=== PATIENT | male | born 1980 | race Caucasian/White ===

== ENCOUNTER 2019-09-17 17:37 | Observation (INO) | payer BC, OTHER ==
--- NOTE | 2019-09-17 17:55 | EDM.PDOC ---
ED HPI GENERAL MEDICAL PROBLEM - General Chief Complaint: Abdominal Pain Stated Complaint: abdominal pain Time Seen by Provider: 09/17/19 17:55 Source of Information: Reports: Patient History Limitations: Reports: No Limitations - History of Present Illness INITIAL COMMENTS - FREE TEXT/NARRATIVE: Abdominal discomfort right sided developed today peaking roughly 3 PM and persistent since then. Ate burritos this morning for breakfast as he was hungry and roughly an hour and a half after that developed mild right-sided discomfort. Not specific to this being gallbladder. Not acting as if musculature is position does not aggravate it. Denies any exposures for COVID 19, no fever chills or GI symptoms. No cough no shortness of breath have been noted. Overall states good general health. 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 Abdominal Pain Score (Numeric/FACES): 7 - Related Data Allergies Allergy/AdvReac Type Severity Reaction Status Date / Time almond Allergy Abdominal Verified 09/17/19 17:39 Pain egg Allergy Hives Verified 09/17/19 17:39 honey Allergy Rash Verified 09/17/19 17:39 Home Meds: Home Meds Albuterol [Proventil HFA] 1 puff INH QID PRN 09/17/19 [History] Fluticasone/Vilanterol [Breo Ellipta 100-25 MCG Inhalation Kit] 1 puff INH DAILY 09/17/19 [History] Ibuprofen 200 - 600 mg PO ASDIRECTED PRN 09/17/19 [History] Montelukast [Singulair] 10 mg PO DAILY 09/17/19 [History] Multivitamin with Minerals [Multiple Vitamin] 1 tab PO DAILY 09/17/19 [History] Past Medical History Cardiovascular History: Reports: None Respiratory History: Reports: Asthma Gastrointestinal History: Reports: None Genitourinary History: Reports: None Psychiatric History: Reports: None Endocrine/Metabolic History: Reports: None Hematologic History: Reports: None Oncologic (Cancer) History: Reports: None - Infectious Disease History Infectious Disease History: Reports: None - Past Surgical History Head Surgeries/Procedures: Reports: None HEENT Surgical History: Reports: None Cardiovascular Surgical History: Reports: None Respiratory Surgical History: Reports: None GI Surgical History: Reports: Hernia, Inguinal ("left side 20 yrs ago") Endocrine Surgical History: Reports: None Neurological Surgical History: Reports: None Musculoskeletal Surgical History: Reports: None Oncologic Surgical History: Reports: None Dermatological Surgical History: Reports: None Social & Family History - Family History Family Medical History: Noncontributory - Tobacco Use Smoking Status *Q: Never Smoker Tobacco Use Within Last Twelve Months: No - Alcohol Use Alcohol Use History: No - Recreational Drug Use Recreational Drug Use: No Drug Use in Last 12 Months: No ED ROS GENERAL - Review of Systems Review Of Systems: See Below Constitutional: Reports: No Symptoms HEENT: Reports: No Symptoms Respiratory: Reports: No Symptoms Cardiovascular: Reports: No Symptoms. Denies: Chest Pain Endocrine: Reports: No Symptoms GI/Abdominal: Reports: Abdominal Pain : Reports: No Symptoms Musculoskeletal: Denies: Back Pain, Leg Pain Skin: Reports: No Symptoms Neurological: Reports: No Symptoms Psychiatric: Reports: No Symptoms Hematologic/Lymphatic: Reports: No Symptoms Immunologic: Reports: No Symptoms ED EXAM, GENERAL - Physical Exam Exam: See Below Free Text/Narrative:: Alert, oriented in no distress. Resting semi-Fowlers with no evidence of cyanosis nor pallor. HEENT is negative to discharge nor deformity. PERRLA no icterus no injection. Ke[place] moist mucous membranes with no erythema or exudate noted. Neck is soft supple no lymphadenopathy no rigidity. Thorax is clear throughout with no wheezes no crackles. Cardiac is S1-S2 with no appreciated murmur. Abdomen is soft bowel sounds are noted throughout/slow. There is tenderness to the right side of the umbilicus to initial palpation with no guarding, no rebound tenderness. There is no tenderness to the left side of the abdomen. There is mild tenderness on deep inspiration but very minimal to the right upper quadrant. There is no specific pain to palpation nor active rebound tenderness in the right lower quadrant. There is no flank pain to percussion or palpation. There is no back pain to motion nor examination palpation. Able to do straight leg raise single and bilateral with no discomfort change to the abdomen. There is no integument changes noted to the abdomen nor flank nor lower posterior thorax. No edema to the lower extremities moves about with minimal if any discomfort. Course - Vital Signs Last Recorded V/S: Last Vital Signs Temp 36.1 C 08/08/20 20:03 Pulse 73 09/17/19 20:03 Resp 20 09/17/19 20:03 BP 131/60 09/17/19 20:03 Pulse Ox 100 09/17/19 20:03 - Orders/Labs/Meds Orders: Active Orders 24 hr Category Date Time Status Peripheral IV Care [RC] . DIRECTED Care 09/17/19 18:18 Active Abdomen Pelvis w Cont [CT] Stat Exams 09/17/19 19:04 Taken CORONAVIRUS COVID-19 RAPID [MOLEC] Stat Lab 09/17/19 20:37 Ordered UA RFX JAIEM AND CULT IF INDIC [URIN] Stat Lab 09/17/19 18:01 Ordered Lactated Ringers [Ringers, Lactated] 1,000 ml Med 09/17/19 20:45 Ordered IV ASDIRECTED Sodium Chloride 0.9% [Normal Saline] 50 ml Med 09/17/19 19:30 Active IV ASDIRECTED Sodium Chloride 0.9% [Saline Flush] Med 09/17/19 18:18 Active 10 ml FLUSH Q8HR PRN Peripheral IV Insertion Adult [OM.PC] Routine Oth 09/17/19 18:18 Ordered Medication Orders Sodium Chloride (Normal Saline) 50 mls @ 200 mls/hr IV ASDIRECTED ZEINA Last Admin: 09/17/19 20:06 Dose: 200 mls/hr Documented by: MAYNOR Lactated Ringer's (Ringers, Lactated) 1,000 mls @ 150 mls/hr IV ASDIRECTED ZEINA Sodium Chloride (Saline Flush) 10 ml FLUSH Q8HR PRN PRN Reason: keep vein open Labs: Laboratory Tests 09/17/19 09/17/19 Range/Units 18:18 18:18 WBC 8.37 (5.00-10.00) 10^3/uL RBC 5.52 (4.50-6.00) 10^6/uL Hgb 17.0 (13.0-17.0) g/dL Hct 49.5 (40.0-52.0) % MCV 89.7 (82.0-92.0) fL MCH 30.8 (27.0-31.0) pg MCHC 34.3 (32.0-36.0) g/dL RDW 13.0 (11.5-14.5) % Plt Count 233 (150-400) 10^3/uL MPV 10.2 (7.4-10.4) fL Immature Gran % (Auto) 0.0 (0.0-5.0) % Neut % (Auto) 73.5 H (50.0-70.0) % Lymph % (Auto) 15.7 L (20.0-40.0) % [place] % (Auto) 6.1 (2.0-8.0) % Eos % (Auto) 4.3 H (1.0-3.0) % Baso % (Auto) 0.4 (0.0-1.0) % Neut # (Auto) 6.16 (2.50-7.00) 10^3/uL Lymph # (Auto) 1.31 (1.00-4.00) 10^3/uL [place] # (Auto) 0.51 (0.10-0.80) 10^3/uL Eos # (Auto) 0.36 H (0.10-0.30) 10^3/uL Baso # (Auto) 0.03 (0.00-0.10) 10^3/uL Immature Gran # (Auto) 0.00 (0.00-0.50) 10^3/uL Sodium 139 (136-145) mmol/L Potassium 4.4 (3.3-5.3) mmol/L Chloride 101 (98-115) mmol/L Carbon Dioxide 30.3 (21.0-32.0) mmol/L Anion Gap 12.1 (5-15) mmol/L BUN 11 (6-25) mg/dL Creatinine 0.94 (0.51-1.17) mg/dL Est Cr Clr Drug Dosing 95.70 mL/min Estimated GFR (MDRD) > 60 mL/min Glucose 102 H (75 - 99) mg/dL Calcium 9.3 (8.7-10.3) mg/dL Total Bilirubin 0.9 (0.2-1.0) mg/dL AST 15 (15-37) U/L ALT 34 (12-78) U/L Alkaline Phosphatase 72 (46-116) IU/L Total Protein 8.5 H (6.4-8.2) g/dL Albumin 4.60 (3.00-4.80) g/dL Amylase 45 (25-125) U/L Lipase 73 (73-393) U/L Meds: Medications Generic Name Dose Route Start Last Admin Trade Name Freq PRN Reason Stop Dose Admin Sodium Chloride 50 mls @ 200 mls/hr 09/17/19 19:30 09/17/19 20:06 Normal Saline IV 200 mls/hr ASDIRECTED ZEINA Administration Lactated Ringer's 1,000 mls @ 150 mls/hr 09/17/19 20:45 Ringers, Lactated IV ASDIRECTED ZEINA Sodium Chloride 10 ml 09/17/19 18:18 Saline Flush FLUSH Q8HR PRN keep vein open Discontinued Medications Generic Name Dose Route Start Last Admin Trade Name Freq PRN Reason Stop Dose Admin Sodium Chloride 1,000 mls @ 999 mls/hr 09/17/19 18:01 09/17/19 18:21 Normal Saline IV 09/17/19 19:01 999 mls/hr .BOLUS ONE Administration Iopamidol 100 ml 09/17/19 19:28 09/17/19 20:06 Isovue-370 (76%) IV 09/17/19 19:29 75 ml ONETIME ONE Administration - Re-Assessments/Exams Free Text/Narrative Re-Assessment/Exam: 09/17/19 19:00 Laboratory analysis reveals no significant findings, normal white count with mild start of shift neutrophils are up. Attempting to void for urinalysis, unable to give sample at this time. Advised that we only needed a small amount to rule out renal lithiasis and will proceed with scan, CT abdomen pelvis with IV contrast. 09/17/19 20:55 Advised of small bowel obstruction and the need for admission. Will contact [facility] provider Dr. Katty Tucker for decoded discussion of status and admission deferred to observation. Will remain n.p.o. with full CODE STATUS lactated Ringer's at 150/h. Departure - Departure Time of Disposition: 20:50 Disposition: Refer to Observation Condition: Good Clinical Impression: Abdominal pain in male, Small bowel obstruction, partial - Discharge Information *PRESCRIPTION DRUG MONITORING PROGRAM REVIEWED*: Not Applicable *COPY OF PRESCRIPTION DRUG MONITORING REPORT IN PATIENT KELI: Not Applicable Forms: ED Department Discharge Sepsis Event Note (ED) - Evaluation Sepsis Screening Result: No Definite Risk - Focused Exam Vital Signs: Vital Signs Temp Pulse Resp BP Pulse Ox 09/17/19 20:03 36.1 C 73 20 131/60 100 09/17/19 17:42 36.6 C 72 16 138/76 99 - Problem List & Annotations (1) Abdominal pain in male SNOMED Code(s): 70601271, 742170069 Code(s): R10.9 - UNSPECIFIED ABDOMINAL PAIN Status: Acute Priority: High (2) Small bowel obstruction, partial SNOMED Code(s): 928010752 Code(s): K56.600 - PARTIAL INTESTINAL OBSTRUCTION, UNSPECIFIED TO CAUSE Status: Acute Priority: High - Problem List Review Problem List Initiated/Reviewed/Updated: Yes - My Orders Last 24 Hours: My Active Orders 09/17/19 18:01 UA RFX JAIME AND CULT IF INDIC [URIN] Stat 09/17/19 18:18 Peripheral IV Care [RC] . DIRECTED Sodium Chloride 0.9% [Saline Flush] 10 ml FLUSH Q8HR PRN Peripheral IV Insertion Adult [OM.PC] Routine 09/17/19 19:04 Abdomen Pelvis w Cont [CT] Stat 09/17/19 19:30 Sodium Chloride 0.9% [Normal Saline] 50 ml IV ASDIRECTED 09/17/19 20:37 CORONAVIRUS COVID-19 RAPID [MOLEC] Stat 09/17/19 20:45 Lactated Ringers [Ringers, Lactated] 1,000 ml IV ASDIRECTED - Assessment/Plan Last 24 Hours: My Active Orders 09/17/19 18:01 UA RFX JAIME AND CULT IF INDIC [URIN] Stat 09/17/19 18:18 Peripheral IV Care [RC] . DIRECTED Sodium Chloride 0.9% [Saline Flush] 10 ml FLUSH Q8HR PRN Peripheral IV Insertion Adult [OM.PC] Routine 09/17/19 19:04 Abdomen Pelvis w Cont [CT] Stat 09/17/19 19:30 Sodium Chloride 0.9% [Normal Saline] 50 ml IV ASDIRECTED 09/17/19 20:37 CORONAVIRUS COVID-19 RAPID [MOLEC] Stat 09/17/19 20:45 Lactated Ringers [Ringers, Lactated] 1,000 ml IV ASDIRECTED Plan: Contact Dr. Annalee Landeros for admission. Provided details of history and laboratory analysis as well as chest and CT findings. Moderate partial small bowel obstruction of the mid to distal jejunum is noted on CT with IV contrast. He has remained comfortable other than fluctuation of his discomfort denying any nausea. Still unable to void. Will hang second bag of IV fluid lactated Ringer's at 150/h. We will defer NG tube at this time secondary of no distention, nausea or bloating/cramping. We will place in observation status n.p.o. with continuation of lactated Ringer's. COVID 19 screening pending at this time.
[2019-09-17] MEDS ORDERED: Sodium Chloride 0.9% 1,000 ML IV ONE (18:01)
[2019-09-17] MEDS ORDERED: Sodium Chloride 0.9% 10 ML Syringe FLUSH PRN (18:18)
[2019-09-17 18:44] LABS: ANION GAP 12.1 mmol/L (5-15); CHLORIDE,CL 101 mmol/L (98-115); SODIUM,NA 139 mmol/L (136-145)
[2019-09-17] MEDS ORDERED: Iopamidol 755 Mg/ML 100 ML Bottle IV ONE (19:28)
[2019-09-17] MEDS ORDERED: Sodium Chloride 0.9% 50 ML IV SCH (19:30)
--- NOTE | 2019-09-17 19:55 | CR ---
[id number] RAD/RAD Chest PA And Lateral EXAM: RAD Chest PA And Lateral INDICATION: ABD PAIN COMPARISON: None. DISCUSSION: Cardiomediastinal silhouette is normal in size and contour. No infiltrate, effusion, pneumothorax, or edema. IMPRESSION: No acute cardiopulmonary abnormality. Fidel Hamilton DO 09/17/19 1954 Thank you for allowing us to participate in the care of your patient.
[2019-09-17] MEDS: Lactated Ringers 1,000 ML IV SCH (21:13)
[2019-09-17] MEDS ORDERED: Albuterol 8 GM Inhaler INH PRN (22:13)
[2019-09-17] MEDS ORDERED: Ondansetron 4 MG/2 ML SDV IVPUSH PRN (22:14)
[2019-09-17] MEDS ORDERED: HYDROmorphone 1 MG/ML Syringe IVPUSH PRN ×2 (22:21→22:27)
[2019-09-18] MEDS: Lactated Ringers 1,000 ML IV SCH (04:09)
[2019-09-18] MEDS ORDERED: Formoterol/Mometasone 100-5 MCG 8.8 GM Inhaler IH SCH (08:00)
[2019-09-18 08:16] LABS: ANION GAP 9.3 mmol/L (5-15); CHLORIDE,CL 107 mmol/L (98-115); SODIUM,NA 142 mmol/L (136-145)
[2019-09-18] MEDS ORDERED: BREO ELLIPTA INH SCH (09:00)
[2019-09-18] MEDS ORDERED: Non-Formulary Medication 1 Each (Fluticasone/Vilanterol 1 PUFF) INH SCH (09:00)
--- NOTE | 2019-09-18 09:12 | CT ---
[id number] CT/CT Abdomen Pelvis W IV EXAM: CT Abdomen Pelvis W IV CLINICAL DATA: RIGHT SIDE PERIUMBILICAL REGION COMPARISON STUDY: None. FINDINGS: Lung bases are clear. Liver, spleen, gallbladder, pancreas, adrenal glands, and kidneys are unremarkable. There are multiple distended loops of small bowel within the midabdomen measuring up to 3.2 cm. This appears to represent the distal jejunum. The ileum and colon are normal in caliber. There is no free air. Small amount of free fluid within the pelvis. No definite transition point. The appendix is visualized and appears normal. No lymphadenopathy, or pneumoperitoneum. Scattered changes of spondylosis the spine. No fracture or osseous lesion. IMPRESSION: Multiple distended loops of jejunum without definite transition point consistent with high-grade partial small bowel obstruction. Small amount of free fluid within the pelvis. Fidel Hamilton DO 09/18/19 0911 Thank you for allowing us to participate in the care of your patient.
--- NOTE | 2019-09-18 11:28 | PCM.HP.2 ---
H&P History of Present Illness - General Date of Service: 09/18/19 Admit Problem/Dx: Admission Diagnosis/Problem Admission Diagnosis/Problem Small bowel obstruction Source of Information: Patient, Old Records, Provider (CHRISTINE Ravi (ED provider)), RN, RN Notes Reviewed History Limitations: Reports: No Limitations - History of Present Illness Initial Comments - Free Text/Narative: Mr. Bolanos was in his usual state of health on 09/17/19 until he developed acute right sided abdominal pain in the mid morning after eating 2 burritos. 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 He described the pain as initially dull and later in the afternoon around [id number] becoming more severe prompting ED visit. His last BM was earlier in the morning on 09/17/19 and relatively normal aside from being a bit softer. He typically has a daily soft BM and had one each of the prior days without difficulty. Aside from the 2 burritos, he hasn't had any po intake aside from trying a small amount of soup and water prior to the pain becoming more severe. Aside from the abdominal pain that he developed, he had no symptoms and otherwise felt well. This morning on rounds, he states that he hasn't had recurrent abdominal pain since admission. He denies having had nausea since he developed pain. He endorses passing gas for the last multiple hours. Has been ambulating without difficulty. Denies any other complaints. Nursing notes no concerns. Abdominal Pain Score (Numeric/FACES): 0 - Related Data Allergies/Adverse Reactions: Allergies Allergy/AdvReac Type Severity Reaction Status Date / Time almond Allergy Abdominal Verified 09/17/19 17:39 Pain egg Allergy Hives Verified 09/17/19 17:39 honey Allergy Rash Verified 09/17/19 17:39 Home Medications: Home Meds Albuterol [Proventil HFA] 1 puff INH QID PRN 09/17/19 [History] Fluticasone/Vilanterol [Breo Ellipta 100-25 MCG Inhalation Kit] 1 puff INH DAILY 09/17/19 [History] Ibuprofen 200 - 600 mg PO ASDIRECTED PRN 09/17/19 [History] Montelukast [Singulair] 10 mg PO DAILY 09/17/19 [History] Multivitamin with Minerals [Multiple Vitamin] 1 tab PO DAILY 09/17/19 [History] Past Medical History HEENT History: Reports: Impaired Vision Other HEENT History: uses glasses Cardiovascular History: Reports: None Respiratory History: Reports: Asthma, SOB Gastrointestinal History: Reports: None Genitourinary History: Reports: None Neurological History: Reports: None Psychiatric History: Reports: None Endocrine/Metabolic History: Reports: None Hematologic History: Reports: None Immunologic History: Reports: None Oncologic (Cancer) History: Reports: None Dermatologic History: Reports: None - Infectious Disease History Infectious Disease History: Reports: None - Past Surgical History Head Surgeries/Procedures: Reports: None HEENT Surgical History: Reports: None Cardiovascular Surgical History: Reports: None Respiratory Surgical History: Reports: None GI Surgical History: Reports: Hernia, Inguinal Endocrine Surgical History: Reports: None Neurological Surgical History: Reports: None Musculoskeletal Surgical History: Reports: None Oncologic Surgical History: Reports: None Dermatological Surgical History: Reports: None Social & Family History - Family History Cardiac: Reports: CAD (mother) Neurological: Reports: CVA (mother) - Tobacco Use Smoking Status *Q: Never Smoker - Recreational Drug Use Recreational Drug Use: No Drug Use in Last 12 Months: No H&P Review of Systems - Review of Systems: Review Of Systems: See Below General: Denies: Fever, Chills, Malaise, Weakness, Fatigue HEENT: Denies: Ear Pain, Sinus Congestion, Sore Throat Pulmonary: Denies: Shortness of Breath, Wheezing, Cough Cardiovascular: Denies: Chest Pain, Dyspnea on Exertion, Edema, Lightheadedness Gastrointestinal: Denies: Black Stool, Bloody Stool, Constipation, Diarrhea, Difficulty Swallowing, Nausea, Vomiting Genitourinary: Denies: Dysuria, Frequency, Burning, Pain, Urgency Musculoskeletal: Denies: Back Pain, Joint Pain, Joint Swelling Skin: Denies: Jaundice, Pallor, Rash Psychiatric: Denies: Confusion, Depression, Anxiety Neurological: Denies: Dizziness, Headache, Numbness, Tingling, Gait Disturbance Exam - Exam Exam: See Below - Vital Signs Vital Signs: Last Vital Signs Temp 36.1 C 09/18/19 06:44 Pulse 53 L 09/18/19 06:44 Resp 16 09/18/19 06:44 BP 113/69 09/18/19 06:44 Pulse Ox 97 09/18/19 06:44 Weight: 69.655 kg - Exam Physical Exam Comments:: GENERAL: Well-appearing adult male lying in hospital bed in no acute distress. HEENT: Normocephalic, atraumatic. Conjunctiva clear. Nares patent without discharge. Mucous membranes moist. NECK: Supple, no masses. CV: Regular rate and rhythm, no murmurs, rubs, or gallops. 2+ radial pulses. PULMONARY: Normal effort, clear to auscultation bilaterally, no wheezes, rales, or rhonchi. ABDOMEN: Positive bowel sounds in all quadrants, soft, very mild tenderness to deep palpation in the right mid-abdomen, nondistended. EXTREMITIES: No edema, cyanosis, or clubbing. MUSCULOSKELETAL: Moves all extremities well. NEUROLOGICAL: No obvious deficits. DERMATOLOGIC: No rashes or suspicious lesions in exposed areas. PSYCHIATRIC: Alert, interactive, appropriate affect. - Patient Data Lab Results Last 24 hrs: Laboratory Results - last 24 hr 09/17/19 09/17/19 09/17/19 Range/Units 18:18 18:18 20:40 WBC 8.37 (5.00-10.00) 10^3/uL RBC 5.52 (4.50-6.00) 10^6/uL Hgb 17.0 (13.0-17.0) g/dL Hct 49.5 (40.0-52.0) % MCV 89.7 (82.0-92.0) fL MCH 30.8 (27.0-31.0) pg MCHC 34.3 (32.0-36.0) g/dL RDW 13.0 (11.5-14.5) % Plt Count 233 (150-400) 10^3/uL MPV 10.2 (7.4-10.4) fL Immature Gran % (Auto) 0.0 (0.0-5.0) % Neut % (Auto) 73.5 H (50.0-70.0) % Lymph % (Auto) 15.7 L (20.0-40.0) % Fountain % (Auto) 6.1 (2.0-8.0) % Eos % (Auto) 4.3 H (1.0-3.0) % Baso % (Auto) 0.4 (0.0-1.0) % Neut # (Auto) 6.16 (2.50-7.00) 10^3/uL Lymph # (Auto) 1.31 (1.00-4.00) 10^3/uL Fountain # (Auto) 0.51 (0.10-0.80) 10^3/uL Eos # (Auto) 0.36 H (0.10-0.30) 10^3/uL Baso # (Auto) 0.03 (0.00-0.10) 10^3/uL Immature Gran # (Auto) 0.00 (0.00-0.50) 10^3/uL Sodium 139 (136-145) mmol/L Potassium 4.4 (3.3-5.3) mmol/L Chloride 101 (98-115) mmol/L Carbon Dioxide 30.3 (21.0-32.0) mmol/L Anion Gap 12.1 (5-15) mmol/L BUN 11 (6-25) mg/dL Creatinine 0.94 (0.51-1.17) mg/dL Est Cr Clr Drug Dosing 95.70 mL/min Estimated GFR (MDRD) > 60 mL/min Glucose 102 H (75 - 99) mg/dL Lactic Acid (0.4-2.0) mmol/L Calcium 9.3 (8.7-10.3) mg/dL Total Bilirubin 0.9 (0.2-1.0) mg/dL AST 15 (15-37) U/L ALT 34 (12-78) U/L Alkaline Phosphatase 72 (46-116) IU/L Total Protein 8.5 H (6.4-8.2) g/dL Albumin 4.60 (3.00-4.80) g/dL Amylase 45 (25-125) U/L Lipase 73 (73-393) U/L Specimen Type Urine Color (YELLOW) Urine Appearance (CLEAR) Urine pH (5.0-9.0) Ur Specific [place] (1.005-1.030) Urine Protein (NEGATIVE) mg/dL Urine Glucose (UA) (NEGATIVE) mg/dL Urine Ketones (NEGATIVE) mg/dL Urine Occult Blood (NEGATIVE) Urine Nitrite (NEGATIVE) Urine Bilirubin (NEGATIVE) Urine Urobilinogen (0.2-1.0) E.U./dL Ur Leukocyte Esterase (NEGATIVE) COVID-19 (RHODA) Negative (NEGATIVE) 09/17/19 09/18/19 09/18/19 Range/Units 20:57 07:45 07:45 WBC 4.88 L (5.00-10.00) 10^3/uL RBC 4.78 (4.50-6.00) 10^6/uL Hgb 14.5 D (13.0-17.0) g/dL Hct 43.2 (40.0-52.0) % MCV 90.4 (82.0-92.0) fL MCH 30.3 (27.0-31.0) pg MCHC 33.6 (32.0-36.0) g/dL RDW 13.2 (11.5-14.5) % Plt Count 183 (150-400) 10^3/uL MPV 10.3 (7.4-10.4) fL Immature Gran % (Auto) 0.0 (0.0-5.0) % Neut % (Auto) 57.4 (50.0-70.0) % Lymph % (Auto) 26.8 (20.0-40.0) % Fountain % (Auto) 9.0 H (2.0-8.0) % Eos % (Auto) 6.4 H (1.0-3.0) % Baso % (Auto) 0.4 (0.0-1.0) % Neut # (Auto) 2.80 (2.50-7.00) 10^3/uL Lymph # (Auto) 1.31 (1.00-4.00) 10^3/uL Fountain # (Auto) 0.44 (0.10-0.80) 10^3/uL Eos # (Auto) 0.31 H (0.10-0.30) 10^3/uL Baso # (Auto) 0.02 (0.00-0.10) 10^3/uL Immature Gran # (Auto) 0.00 (0.00-0.50) 10^3/uL Sodium 142 (136-145) mmol/L Potassium 4.3 (3.3-5.3) mmol/L Chloride 107 (98-115) mmol/L Carbon Dioxide 30.0 (21.0-32.0) mmol/L Anion Gap 9.3 (5-15) mmol/L BUN 9 (6-25) mg/dL Creatinine 0.85 (0.51-1.17) mg/dL Est Cr Clr Drug Dosing 116.09 mL/min Estimated GFR (MDRD) > 60 mL/min Glucose 87 (75 - 99) mg/dL Lactic Acid (0.4-2.0) mmol/L Calcium 8.2 L (8.7-10.3) mg/dL Total Bilirubin 0.9 (0.2-1.0) mg/dL AST 9 L (15-37) U/L ALT 26 (12-78) U/L Alkaline Phosphatase 55 (46-116) IU/L Total Protein 6.4 (6.4-8.2) g/dL Albumin 3.28 (3.00-4.80) g/dL Amylase (25-125) U/L Lipase (73-393) U/L Specimen Type Urincc Urine Color Yellow (YELLOW) Urine Appearance Clear (CLEAR) Urine pH 7.0 (5.0-9.0) Ur Specific [place] 1.015 (1.005-1.030) Urine Protein Negative (NEGATIVE) mg/dL Urine Glucose (UA) Negative (NEGATIVE) mg/dL Urine Ketones Negative (NEGATIVE) mg/dL Urine Occult Blood Negative (NEGATIVE) Urine Nitrite Negative (NEGATIVE) Urine Bilirubin Negative (NEGATIVE) Urine Urobilinogen 0.2 (0.2-1.0) E.U./dL Ur Leukocyte Esterase Negative (NEGATIVE) COVID-19 (RHODA) (NEGATIVE) 09/18/19 Range/Units 07:45 WBC (5.00-10.00) 10^3/uL RBC (4.50-6.00) 10^6/uL Hgb (13.0-17.0) g/dL Hct (40.0-52.0) % MCV (82.0-92.0) fL MCH (27.0-31.0) pg MCHC (32.0-36.0) g/dL RDW (11.5-14.5) % Plt Count (150-400) 10^3/uL MPV (7.4-10.4) fL Immature Gran % (Auto) (0.0-5.0) % Neut % (Auto) (50.0-70.0) % Lymph % (Auto) (20.0-40.0) % Fountain % (Auto) (2.0-8.0) % Eos % (Auto) (1.0-3.0) % Baso % (Auto) (0.0-1.0) % Neut # (Auto) (2.50-7.00) 10^3/uL Lymph # (Auto) (1.00-4.00) 10^3/uL Fountain # (Auto) (0.10-0.80) 10^3/uL Eos # (Auto) (0.10-0.30) 10^3/uL Baso # (Auto) (0.00-0.10) 10^3/uL Immature Gran # (Auto) (0.00-0.50) 10^3/uL Sodium (136-145) mmol/L Potassium (3.3-5.3) mmol/L Chloride (98-115) mmol/L Carbon Dioxide (21.0-32.0) mmol/L Anion Gap (5-15) mmol/L BUN (6-25) mg/dL Creatinine (0.51-1.17) mg/dL Est Cr Clr Drug Dosing mL/min Estimated GFR (MDRD) mL/min Glucose (75 - 99) mg/dL Lactic Acid 1.1 (0.4-2.0) mmol/L Calcium (8.7-10.3) mg/dL Total Bilirubin (0.2-1.0) mg/dL AST (15-37) U/L ALT (12-78) U/L Alkaline Phosphatase (46-116) IU/L Total Protein (6.4-8.2) g/dL Albumin (3.00-4.80) g/dL Amylase (25-125) U/L Lipase (73-393) U/L Specimen Type Urine Color (YELLOW) Urine Appearance (CLEAR) Urine pH (5.0-9.0) Ur Specific [place] (1.005-1.030) Urine Protein (NEGATIVE) mg/dL Urine Glucose (UA) (NEGATIVE) mg/dL Urine Ketones (NEGATIVE) mg/dL Urine Occult Blood (NEGATIVE) Urine Nitrite (NEGATIVE) Urine Bilirubin (NEGATIVE) Urine Urobilinogen (0.2-1.0) E.U./dL Ur Leukocyte Esterase (NEGATIVE) COVID-19 (RHODA) (NEGATIVE) Result Diagrams: 09/18/19 07:45 09/18/19 07:45 Sepsis Event Note - Evaluation Sepsis Screening Result: No Definite Risk - Focused Exam Vital Signs: Vital Signs Temp Pulse Resp BP Pulse Ox 09/18/19 06:44 36.1 C 53 L 16 113/69 97 09/18/19 02:52 36.3 C 57 L 16 94/52 L 98 Date Exam was Performed: 09/18/19 Time Exam was Performed: 11:23 Problem List Initiated/Reviewed/Updated: Yes Orders Last 24hrs: Active Orders 24 hr Category Date Time Status Patient Status [ADT] Routine ADT 09/17/19 20:51 Active Ambulate [RC] PER UNIT ROUTINE Care 09/17/19 22:25 Active Intake and Output [RC] 0700,1900 Care 09/17/19 22:23 Active Notify Provider Vital Signs [RC] 0900,2100 Care 09/17/19 22:24 Active Oxygen Therapy [RC] PRN Care 09/17/19 22:23 Active Peripheral IV Care [RC] 0900,2100 Care 09/17/19 18:18 Active Up With Assistance [RC] ASDIRECTED Care 09/17/19 22:23 Active VTE/DVT Education [RC] PER UNIT ROUTINE Care 09/17/19 22:23 Active Vital Signs [RC] 0700,1100,1500,1900,2300,0300 Care 09/17/19 22:23 Active Clear Liquid Diet [DIET] Diet 09/18/19 Lunch Ordered Albuterol [Ventolin HFA] Med 09/17/19 22:13 Active 0 gm INH QID PRN Fluticasone/Vilanterol Med 09/18/19 09:00 Active 1 puff INH DAILYRT HYDROmorphone [Dilaudid] Med 09/17/19 22:27 Active 0.5 mg IVPUSH Q2H PRN Ondansetron [Zofran] Med 09/17/19 22:14 Active 4 mg IVPUSH Q4H PRN Sodium Chloride 0.9% [Saline Flush] Med 09/17/19 18:18 Active 10 ml FLUSH Q8HR PRN Code Status [Resuscitation Status] Stat Resus Stat 09/17/19 20:48 Ordered Medication Orders Albuterol (Ventolin Hfa) 0 gm INH QID PRN PRN Reason: Shortness of Breath Hydromorphone HCl (Dilaudid) 0.5 mg IVPUSH Q2H PRN PRN Reason: Abdominal Pain Breo Ellipta 100-25 Mcg (Fluticasone/Vilanterol) InhOwn Med 1 puff INH DAILYRT ZEINA Last Admin: 09/18/19 08:30 Dose: Not Given Documented by: WAITCOL Ondansetron HCl (Zofran) 4 mg IVPUSH Q4H PRN PRN Reason: Nausea/Vomiting Sodium Chloride (Saline Flush) 10 ml FLUSH Q8HR PRN PRN Reason: keep vein open Assessment/Plan Comment:: HPI summary: Mr. Bolanos is a 39yoM with a history of one abdominal surgery (remote R ing uinal hernia) and well controlled asthma who was in his usual state of health on 09/17/19 until he developed acute right sided abdominal pain in the mid morning after eating 2 burritos. 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 He described the pain as initially dull and later in the afternoon around [id number] becoming more severe prompting ED visit. His last BM was earlier in the morning on 09/17/19 and relatively normal aside from being a bit softer. He typically has a daily soft BM and had one each of the prior days without difficulty. Aside from the 2 burritos, he hasn't had any po intake aside from trying a small amount of soup and water prior to the pain becoming more severe. Aside from the abdominal pain that he developed, he had no symptoms and otherwise felt well. ED course: - Examination notable for R sided abdominal pain - VS wnl - CBC/CMP/UA wnl aside from 73% neutrophils on WBC differential - COVID-19 negative - CT abdomen/pelvis with multiple distended loops of jejunum without definite transition point consistent with high-grade partial SBO and small amount of free fluid in the pelvis - NS 1L bolus - No medications given Hospital course: Despite clinically reassuring status, findings of SBO necessitated admission. Patient was made NPO and IVF were given. He had no recurrent abdominal pain or nausea necessitating any prn medications. He endorses passing gas and has been ambulating without difficulty. Repeat labs revealed normal CBC/CMP/lactic acid. Hospitalization problems and plan: # Small bowel obstruction Despite CT abdomen/pelvis revealing evidence of high-grade partial SBO, patient is clinically doing quite well, is passing gas and has no evidence of infection, hemodynamic instability, or other indication for urgent surgical consultation. He is well hydrated. Due to this, will cautiously proceed with advancement of diet and monitor closely. - Advance to water and ice chips now followed by clear liquids for lunch; if continuing to do well, will advance to full liquids for dinner - SLIV - Monitor pain and any other GI symptoms closely with low threshold to return to NPO status if concerns arise Chronic, stable conditions: # Asthma / Allergies: Stable. Continue Breo daily, albuterol prn. Resume montelukast when tolerating diet. # Hyperlipidemia: Last lipid panel 2014 with LDL 132. Recommend outpatient recheck. Hospitalization details: # FEN: SLIV. Electrolytes normal. Advance diet as above. # PPX: Ambulation/SCDs for DVT ppx. # Code status: FULL. # Emergency contact: , who will be updated by patient. # Disposition: Admit to observation status for small bowel obstruction. Anticipate possible discharge later today if clinically progressing versus ongoing hospitalization if obstruction not resolved.
--- NOTE | 2019-09-18 22:25 | PCM.DCSUM1 ---
Discharge Summary - Hospital Course Free Text/Narrative:: Date of admission: 09/17/19 Date of discharge: 09/18/19 Admission diagnoses: # Small bowel obstruction Discharge diagnoses: # Small bowel obstruction Consultations: None Procedures: None Hospital course: Mr. Bolanos is a 39yoM with a history of one abdominal surgery (remote R inguinal hernia) and well controlled asthma who was in his usual state of health on 09/17/19 until he developed acute right sided abdominal pain in the mid morning after eating 2 burritos. 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 He described the pain as initially dull and later in the afternoon around [id number] becoming more severe prompting ED visit. His last BM was earlier in the morning on 09/17/19 and relatively normal aside from being a bit softer. He typically has a daily soft BM and had one each of the prior days without difficulty. Aside from the 2 burritos, he hasn't had any po intake aside from t rying a small amount of soup and water prior to the pain becoming more severe. Aside from the abdominal pain that he developed, he had no symptoms and otherwise felt well. In the ED, examination was only notable for R sided abdominal pain, VS and CBC/CMP/UA were unremarkable, but CT abdomen/pelvis showed multiple distended loops of jejunum without definite transition point consistent with high-grade partial SBO and small amount of free fluid in the pelvis. NS 1L bolus was given, but no medications as patient denied any significant pain or any nausea. Despite clinically reassuring status, findings of SBO necessitated admission. Patient was made NPO and IVF were continued. Despite CT abdomen/pelvis revealing evidence of high-grade partial SBO, patient clinically did quite well, with pass age of flatus and no evidence of infection, hemodynamic instability, or other indication for surgical consultation. He had no recurrent abdominal pain or nausea necessitating any prn medications throughout his stay. Repeat labs on the morning of admission revealed normal CBC/CMP/lactic acid. IVF were stopped and diet was slowly advanced without any recurrence of abdominal pain and ongoing passage of flatus. Had a discussion about the possibility of staying in the hospital until having a bowel movement or discharging to home with ongoing conservative management and monitoring since he wasn't requiring any IVF or interventions and he opted to discharge to home. Extensively discussed return precautions. Discharge and follow-up recommendations: - Discharge to home - New medications at discharge: None - Follow-up at [facility] with provider of choice in the next 3-5 days - Recommend repeat lipid panel given last in 2014 with LDL 132 and family history of premature cardiovascular disease Note: This is a same day admission and discharge. - Discharge Data Discharge Date: 09/18/19 Discharge Disposition: Home, Self-Care 01 Condition: Good - Referral to Home Health Primary Care Physician: Renny Patel MD - Patient Instructions Diet: Full Liquid Diet, GI Soft/Low Residue/Low Fiber Activity: As Tolerated Driving: May Drive Today Showering/Bathing: May Shower Notify Provider of: Fever, Increased Pain, Swelling and Redness, Drainage, Nausea and/or Vomiting Other/Special Instructions: Call [facility] in morning to be seen in clinic tomorrow 09/19/19. - Discharge Plan *PRESCRIPTION DRUG MONITORING PROGRAM REVIEWED*: Not Applicable *COPY OF PRESCRIPTION DRUG MONITORING REPORT IN PATIENT KELI: Not Applicable Home Medications: Home Meds Albuterol [Proventil HFA] 1 puff INH QID PRN 09/17/19 [History] Fluticasone/Vilanterol [Breo Ellipta 100-25 MCG Inhalation Kit] 1 puff INH DAILY 09/17/19 [History] Ibuprofen 200 - 600 mg PO ASDIRECTED PRN 09/17/19 [History] Montelukast [Singulair] 10 mg PO DAILY 09/17/19 [History] Multivitamin with Minerals [Multiple Vitamin] 1 tab PO DAILY 09/17/19 [History] Referrals: PCP,None [Ordering Only Provider] - - Discharge Summary/Plan Comment DC Time >30 min.: No - Patient Data Vitals - Most Recent: Last Vital Signs Temp 36.3 C 09/18/19 15:00 Pulse 61 09/18/19 15:00 Resp 19 09/18/19 15:00 BP 129/82 09/18/19 15:00 Pulse Ox 98 09/18/19 15:00 Weight - Most Recent: 69.655 kg I&O - Last 24 hours: Intake & Output 09/18/19 09/18/19 09/18/19 06:59 14:59 22:59 Intake Total 2807 846 [id number] Balance 2551 738 4913 Lab Results - Last 24 hrs: Laboratory Results - last 24 hr 09/18/19 09/18/19 09/18/19 Range/Units 07:45 07:45 07:45 WBC 4.88 L (5.00-10.00) 10^3/uL RBC 4.78 (4.50-6.00) 10^6/uL Hgb 14.5 D (13.0-17.0) g/dL Hct 43.2 (40.0-52.0) % MCV 90.4 (82.0-92.0) fL MCH 30.3 (27.0-31.0) pg MCHC 33.6 (32.0-36.0) g/dL RDW 13.2 (11.5-14.5) % Plt Count 183 (150-400) 10^3/uL MPV 10.3 (7.4-10.4) fL Immature Gran % (Auto) 0.0 (0.0-5.0) % Neut % (Auto) 57.4 (50.0-70.0) % Lymph % (Auto) 26.8 (20.0-40.0) % Cloud % (Auto) 9.0 H (2.0-8.0) % Eos % (Auto) 6.4 H (1.0-3.0) % Baso % (Auto) 0.4 (0.0-1.0) % Neut # (Auto) 2.80 (2.50-7.00) 10^3/uL Lymph # (Auto) 1.31 (1.00-4.00) 10^3/uL Cloud # (Auto) 0.44 (0.10-0.80) 10^3/uL Eos # (Auto) 0.31 H (0.10-0.30) 10^3/uL Baso # (Auto) 0.02 (0.00-0.10) 10^3/uL Immature Gran # (Auto) 0.00 (0.00-0.50) 10^3/uL Sodium 142 (136-145) mmol/L Potassium 4.3 (3.3-5.3) mmol/L Chloride 107 (98-115) mmol/L Carbon Dioxide 30.0 (21.0-32.0) mmol/L Anion Gap 9.3 (5-15) mmol/L BUN 9 (6-25) mg/dL Creatinine 0.85 (0.51-1.17) mg/dL Est Cr Clr Drug Dosing 116.09 mL/min Estimated GFR (MDRD) > 60 mL/min Glucose 87 (75 - 99) mg/dL Lactic Acid 1.1 (0.4-2.0) mmol/L Calcium 8.2 L (8.7-10.3) mg/dL Total Bilirubin 0.9 (0.2-1.0) mg/dL AST 9 L (15-37) U/L ALT 26 (12-78) U/L Alkaline Phosphatase 55 (46-116) IU/L Total Protein 6.4 (6.4-8.2) g/dL Albumin 3.28 (3.00-4.80) g/dL Med Orders - Current: Current Medications Discontinued Medications Albuterol (Ventolin Hfa) 0 gm INH QID PRN PRN Reason: Shortness of Breath Hydromorphone HCl (Dilaudid) 1 mg IVPUSH Q2H PRN PRN Reason: Abdominal Pain Hydromorphone HCl (Dilaudid) 0.5 mg IVPUSH Q2H PRN PRN Reason: Abdominal Pain Sodium Chloride (Normal Saline) 1,000 mls @ 999 mls/hr IV .BOLUS ONE Stop: 09/17/19 19:01 Last Admin: 09/17/19 18:21 Dose: 999 mls/hr Documented by: Sodium Chloride (Normal Saline) 50 mls @ 200 mls/hr IV ASDIRECTED [facility] Last Admin: 09/17/19 20:06 Dose: 200 mls/hr Documented by: Lactated Ringer's (Ringers, Lactated) 1,000 mls @ 150 mls/hr IV ASDIRECTED [facility] Last Admin: 09/18/19 04:09 Dose: 150 mls/hr Documented by: Iopamidol ([id number] (76%)) 100 ml IV ONETIME ONE Stop: 09/17/19 19:29 Last Admin: 09/17/19 20:06 Dose: 75 ml Documented by: [place] Ellipta 100-25 Mcg (Fluticasone/Vilanterol) InhOwn Med 1 puff INH DAILYRT [facility] Last Admin: 09/18/19 08:30 Dose: Not Given Documented by: Ondansetron HCl (Zofran) 4 mg IVPUSH Q4H PRN PRN Reason: Nausea/Vomiting Sodium Chloride (Saline Flush) 10 ml FLUSH Q8HR PRN PRN Reason: keep vein open
== END 2019-09-18 18:49 | disposition home or self-care (01) ==
LOC: KA.ED 17:37 → KA.MS 20:51 → UNDOADMOB 21:44 → UNDODISOB 09-18 18:49
PROVIDERS: ADMIT Family Medicine; ATTEND Family Medicine
DX: K56.600 Partial intestinal obstruction, unspecified as to cause (principal); E78.5 Hyperlipidemia, unspecified; J45.909 Unspecified asthma, uncomplicated; Z20.828 Contact with and (suspected) exposure to other viral communicable diseases; Z91.012 Allergy to eggs; Z91.018 Allergy to other foods; Z79.51 Long term (current) use of inhaled steroids; Z98.890 Other specified postprocedural states
CPT/HCPCS: 36415; 71046; 74177; 80053; 81003; 82150; 83605; 83690; 85025; 96360; 96361; 99284; 99285-25; A9270-GY; G0378; J7030; J7050; J7120; Q9967; U0002

== ENCOUNTER 2022-09-20 20:33 | Emergency (ER) | payer BC | END 2022-09-20 21:20 | disposition home or self-care (01) | LOC: KA.ED 20:33 | DX: S90.851A Superficial foreign body, right foot, initial encounter (principal); J45.909 Unspecified asthma, uncomplicated; Z79.899 Other long term (current) drug therapy; Z91.012 Allergy to eggs; Z91.018 Allergy to other foods; W45.8XXA Other foreign body or object entering through skin, initial encounter | CPT/HCPCS: 73620-LT; 99283 ==